=== PATIENT | female | born 1985 | race Caucasian/White ===

== ENCOUNTER → 2020-07-07 | Outpatient (CLI) | payer BC ==
--- NOTE | 2020-07-07 10:43 | RAD ---
XR FINGER(S)_LEFT 2+VIEWS_RT History: Injury to middle finger one week ago. Comparison: None. Technique: AP view left hand with 2 coned-down views of the middle finger. Findings: No fracture or dislocation. Osseous mineralization is normal. Benign appearing sclerotic focus in the middle finger distal phalanx likely bone island. No significant degenerative changes or osseous erosive process. No focal soft tissue swelling. Impression: 1. No acute osseous abnormal the middle finger. Electronically signed by: Rom Jaime MD (07/07/2020 10:41 AM) [facility]
== END ==
LOC: RAD 09:16
PROVIDERS: ATTEND Family Medicine
DX: S69.92XA Unspecified injury of left wrist, hand and finger(s), initial encounter (principal); X58.XXXA Exposure to other specified factors, initial encounter; Y93.89 Activity, other specified; Y92.89 Other specified places as the place of occurrence of the external cause; Y99.8 Other external cause status
CPT/HCPCS: 73140

== ENCOUNTER 2020-12-08 18:51 | Emergency (ER) | payer BC ==
[~2020-12-08] VITALS: Ht 170.2 cm; Wt 76.3 kg
--- NOTE | 2020-12-08 19:11 | PHYS DOC ---
General Adult EDM: Chief Complaint: NAUSEA/VOMITING/DIARRHEA HPI: HPI: Patient is a 34-year-old female who presents to the emergency department for a 2-day history of nausea and vomiting. Patient reports that she has vomited 5 times today. She is also reporting chills and sweats. Patient is mildly tach ycardic in the ER. She denies fevers, diarrhea, abdominal pain, dysuria, sick exposures, recent travel, blood in vomit. She states that she is vaccinated for COVID-19 (IVETT ALCALA APRN) Review of Systems: Review of Systems: 14 body systems of the review of systems have been reviewed. See HPI for pertinent positive and negative responses, otherwise all other systems are negative, nonpertinent or noncontributory (IVETT ALCALA APRN) Physical Exam: PE: Constitutional: Well developed, well nourished, no acute distress, non-toxic appearance. [] HENT: Normocephalic, atraumatic, bilateral external ears normal, oropharynx moist, no oral exudates, nose normal. [] Eyes: PERRL, EOMI, conjunctiva normal, no discharge. [] Neck: Normal range of motion, no stridor Cardiovascular:Heart rate tachycardic rhythm, no murmur [] Lungs & Thorax: Bilateral breath sounds clear to auscultation [] Abdomen: Bowel sounds normal, soft, no tenderness, no masses, no pulsatile masses. [] Skin: Warm, dry, no erythema, no rash. [] Back: No tenderness, no CVA tenderness. [] Extremities: No tenderness, no cyanosis, no clubbing, ROM intact, no edema. [] Neurologic: Alert and oriented X 3, normal motor function, normal sensory function, no focal deficits noted. [] Psychologic: Affect normal, judgement normal, mood normal. [] (IVETT ALCALA APRN) Current Patient Data: Labs: Laboratory Tests Test 12/08/20 19:30 White Blood Count 12.9 x10^3/uL Red Blood Count 4.14 x10^6/uL Hemoglobin 13.7 g/dL Hematocrit 40.3 % Mean Corpuscular Volume 97 fL Mean Corpuscular Hemoglobin 33 pg Mean Corpuscular Hemoglobin Concent 34 g/dL Red Cell Distribution Width 14.0 % Platelet Count 357 x10^3/uL Neutrophils (%) (Auto) 77 % Lymphocytes (%) (Auto) 15 % Monocytes (%) (Auto) 7 % Eosinophils (%) (Auto) 0 % Basophils (%) (Auto) 1 % Neutrophils # (Auto) 9.9 x10^3uL Lymphocytes # (Auto) 1.9 x10^3/uL Monocytes # (Auto) 0.9 x10^3/uL Eosinophils # (Auto) 0.1 x10^3/uL Basophils # (Auto) 0.1 x10^3/uL Urine Collection Type Unknown Urine Color Yellow Urine Clarity Clear Urine pH 5.5 Urine Specific [place] 1.025 Urine Protein Trace Urine Glucose (UA) Neg mg/dL Urine Ketones (Stick) Trace mg/dL Urine Blood Mod Urine Nitrite Neg Urine Bilirubin Neg Urine Urobilinogen Dipstick 0.2 mg/dL Urine Leukocyte Esterase Neg Urine RBC 1-2 /HPF Urine WBC 1-4 /HPF Urine Squamous Epithelial Cells Many /LPF Urine Bacteria Mod /HPF Sodium Level 140 mmol/L Potassium Level 3.4 mmol/L Chloride Level 101 mmol/L Carbon Dioxide Level 25 mmol/L Anion Gap 14 Blood Urea Nitrogen 22 mg/dL Creatinine 0.8 mg/dL Estimated GFR (Cockcroft-Gault) 81.2 BUN/Creatinine Ratio 28 Glucose Level 105 mg/dL Calcium Level 9.6 mg/dL Total Bilirubin 0.3 mg/dL Aspartate Amino Transf (AST/SGOT) 23 U/L Alanine Aminotransferase (ALT/SGPT) 56 U/L Alkaline Phosphatase 64 U/L Total Protein 8.4 g/dL Albumin 4.1 g/dL Albumin/Globulin Ratio 1.0 Lipase 133 U/L Current Medications Medications (Trade) Dose Ordered Sig/Renard Route PRN Reason Start Time Stop Time Status Last Admin Dose Admin Sodium Chloride 1,000 ml @ 1,000 mls/hr 1X ONCE IV 12/08/20 19:15 12/08/20 20:14 DC 12/08/20 19:42 Ondansetron HCl (Zofran) 4 mg 1X ONCE IVP 12/08/20 19:15 12/08/20 19:16 UNV Prochlorperazine Edisylate (Compazine) 10 mg 1X ONCE IV 12/08/20 19:15 12/08/20 19:29 DC 12/08/20 19:41 Ondansetron HCl (Zofran) 4 mg STK-MED ONCE .ROUTE 12/08/20 19:16 12/08/20 19:17 DC (IVETT ALCALA APRN) EKG: EKG: [] (IVETT ALCALA APRN) Radiology/Procedures: Radiology/Procedures: [] (IVETT ALCALA APRN) Heart Score: C/O Chest Pain: N/A Risk Factors: Risk Factors: DM, Current or recent (<one month) smoker, HTN, HLP, family history of CAD, obesity. Risk Scores: Score 0 - 3: 2.5% MACE over next 6 weeks - Discharge Home Score 4 - 6: 20.3% MACE over next 6 weeks - Admit for Clinical Observation Score 7 - 10: 72.7% MACE over next 6 weeks - Early Invasive Strategies (IVETT ALCALA APRN) Course & Med Decision Making: Course & Med Decision Making Pertinent Labs and Imaging studies reviewed. (See chart for details) [] Patient presents to the emergency department for nausea and vomiting x2 days along with chills and sweats. Patient is tachycardic. Work-up in the ER consisted of blood work, Covid testing, urinalysis. Patient treated with IV fluids and nausea medication. Patient reports that she is feeling better after treatment in the emergency department. She was noted to have a mild UTI which will be treated with an antibiotic. Heart rate has improved with a rate of 96. She was noted to have hypokalemia which was replaced in the ER. Patient was no rudi to have mild leukocytosis with a white blood cell count of 12.9 this is most likely due to nausea or vomiting. Advised to follow-up with her primary care provider. Advised to increase fluids. I discussed with patient all findings and diagnostic testing as well as the need to follow-up with PCP for further evaluation and treatment or return to the ER if any new or worsening symptoms. Strict return precautions were also discussed at length. Patient voiced understanding and agreement with the plan. Patient is hemodynamically stable at the time of disposition. (IVETT ALCALA APRN) Dragon Disclaimer: Dragon Disclaimer: This electronic medical record was generated, in whole or in part, using a voice recognition dictation system. (IVETT ALCALA APRN) Departure Departure: Impression: Primary Impression: Urinary tract infection Qualified Codes: N30.01 - Acute cystitis with hematuria Additional Impressions: Hypokalemia Nausea & vomiting Qualified Codes: R11.2 - Nausea with vomiting, unspecified Disposition: 01 HOME / SELF CARE / HOMELESS Condition: GOOD Referrals: HUMBERTO MANZO MD (PCP) Patient Instructions: Hypokalemia-Brief, Nausea and Vomiting, Urinary Tract Infection Additional Instructions: You were seen in the emergency department for nausea vomiting and chills. You are noted to have a urinary tract infection. This be treated with antibiotic, you are given your first dose in the ER. Make sure they start and finish the antibiotic completely. As discussed, your potassium level was low in the ER, this was replaced with a supplement. Please ensure that when you are at home you are eating potassium rich foods such as green leafy vegetables and bananas. Increase your fluids at home. You are tested in the ER today for COVID-19. You will be notified of those results via telephone when they become available in approximately 2 days. Please self isolate until you receive these results. You can take Tylenol or ibuprofen for any pain or fevers at home. Follow-up with your primary care provider tomorrow regarding your ER visit. Return to the emergency department if you develop intractable nausea vomiting, high fevers refractory to treatment, severe abdominal pain, severe back pain, blood in your stools or vomit or any new or worsening concerns. EMERGENCY DEPARTMENT GENERAL DISCHARGE INSTRUCTIONS Thank you for coming to [facility] (ED) today and trusting us with you care. We trust that you had a positivie experience in our Emergency Department. If you wish to speak to the department management, you may call the director at [phone]. YOUR FOLLOW UP INSTRUCTIONS ARE FOLLOWS: 1. Do you have a private Doctor? If you do not have a private doctor, please ask for a resource list of physicians or clinics that may be able to assist you with follow up care. 2. The Emergency Physician has interpreted your x-rays. The X-Ray specialist will also review them. If there is a change in the findings, you will be notified in 48 hours when at all possible. 3. A lab test or culture has been done, your results will be reviewed and you will be notified if you need a change in treatment. ADDITIONAL INSTRUCTIONS AND INFORMATION: 1. Your care today has been supervised by a physician who is specially trained in emergency care. Many problems require more than one evaluation for a complete diagnosis and treatment. We recommend that you schedule your follow up appointment as recommended to ensure complete treatment of you illness or injury. If you are unable to obtain follow up care and continue to have a problem, or if your condition worsens, we recommend that you return to the ED. 2. We are not able to safely determine your condition over the phone nor are we able to give sound medical advice over the phone. For these safety reasons, if you call for medical advice we will ask you to come to the ED for further evaluation. 3. If you have any questions regarding these discharge instructions please call the ED at [phone]. SAFETY INFORMATION: In the interest of safety, wellness, and injury prevention; we encourage you to wear your sealbelt, if you smoke; quite smoking, and we encourage family to use a protective helmet for bicycling and other sporting events that present an increased risk for head injury. IF YOUR SYMPTOMS WORSEN OR NEW SYMPTOMS DEVELOP, OR YOU HAVE CONCERNS ABOUT YOUR CONDITION; OR IF YOUR CONDITION WORSENS WHILE YOU ARE WAITING FOR YOUR FOLLOW UP APPOINTMENT; EITHER CONTACT YOUR PRIMARY CARE DOCTOR, THE PHYSICIAN WHOSE NAME AND NUMBER YOU WERE GIVEN, OR RETURN TO THE ED IMMEDIATELY. Scripts Cephalexin (CEPHALEXIN) 500 Mg Tablet 1 TAB PO BID for uti for 7 Days, #14 TAB 0 Refills Prov: IVETT ALCALA APRN 12/08/20 Attending Signature Attending Signature I have reviewed the PA/GLASS FINISHER's note and plan of care. I was available for consultation as needed during the patient's visit in the emergency department. I agree with the clinical impression, plan, and disposition. (CHAYITO INGRAM DO) IVETT ALCALA APRN Dec 08, 2020 19:11 CHAYITO INGRAM DO Dec 09, 2020 01:41
[2020-12-08] MEDS ORDERED: ONDANSETRON PF 4 MG/2 ML VIAL. IVP ONE (19:15)
[2020-12-08] MEDS ORDERED: IV NORMAL SALINE 1,000ML 1,000 ML IV ONE (19:15)
[2020-12-08] MEDS ORDERED: PROCHLORPERAZINE 10 MG/2 ML VIAL. IV ONE (19:15)
[2020-12-08] MEDS ORDERED: ONDANSETRON PF 4 MG/2 ML VIAL. ONE (19:16)
[2020-12-08 19:59] LABS: BASO # 0.1 x10^3/uL (0.0-0.2); BASO % 1 % (0-3); EOS # 0.1 x10^3/uL (0.0-0.7); EOS % 0 % (0-3); HEMATOCRIT 40.3 % (36.0-47.0); HEMOGLOBIN 13.7 g/dL (12.0-15.5); LYMPH # 1.9 x10^3/uL (1.0-4.8); LYMPH % 15 % (24-48); MEAN CORPUSCULAR HEMOGLOBIN 33 pg (25-35); MEAN CORPUSCULAR HGB CONC 34 g/dL (31-37); MEAN CORPUSCULAR VOLUME 97 fL (79-100); MONO # 0.9 x10^3/uL (0.0-1.1); MONO % 7 % (0-9); NEUT # 9.9 x10^3uL (1.8-7.7); NEUT % 77 % (31-73); PLATELET COUNT 357 x10^3/uL (140-400); RED BLOOD COUNT 4.14 x10^6/uL (3.50-5.40); WHITE BLOOD COUNT 12.9 x10^3/uL (4.0-11.0)
[2020-12-08 20:08] LABS: CALCIUM 9.6 mg/dL (8.5-10.1); CREATININE 0.8 mg/dL (0.6-1.0); GFR 81.2; POTASSIUM 3.4 mmol/L (3.5-5.1)
[2020-12-08 20:14] LABS: ALBUMIN 4.1 g/dL (3.4-5.0); TOTAL BILIRUBIN 0.3 mg/dL (0.2-1.0); TOTAL PROTEIN 8.4 g/dL (6.4-8.2)
[2020-12-08 20:34] LABS: BACTERIA,URINE MOD /HPF (0-FEW); BILIRUBIN,URINE NEG (NEG); CLARITY,URINE CLEAR; COLOR,URINE YELLOW; GLUCOSE,URINE NEG (NEG); NITRITE,URINE NEG (NEG); SQUAMOUS EPITHELIAL CELL,UR MANY /LPF; UROBILINOGEN,URINE 0.2 mg/dL (0.2 mg/dL)
[2020-12-08] MEDS ORDERED: CEPHALEXIN 250 MG CAPSULE PO ONE (20:45)
[2020-12-08] MEDS ORDERED: POTASSIUM CHLORIDE 20 MEQ TABLET.ER. PO ONE (20:45)
[2020-12-08] MEDS ORDERED: CEPH500T PO (20:47)
== END 2020-12-08 21:19 | disposition home or self-care (01) ==
LOC: ER 18:51
DX: N39.0 Urinary tract infection, site not specified (principal); E87.6 Hypokalemia; R11.2 Nausea with vomiting, unspecified; Z20.822 Contact with and (suspected) exposure to COVID-19
CPT/HCPCS: 80053; 81001; 83690; 85025; 87086; 96361; 96374; 99283; C9803; J0780; J7030; U0003